=== PATIENT | male | born 1965 | race Hispanic/Latino ===

== ENCOUNTER 2019-12-08 07:00 | Day surgery (SDC) | payer BC ==
[2019-12-01 11:01] LABS: BASOPHILS % (AUTO) 0.6 % (0.0-5.0); EOSINOPHILS % (AUTO) 0.2 % (0.0-8.0); HEMATOCRIT 43.3 % (42-54); LYMPHOCYTES % (AUTO) 20.1 % (21.0-51.0); MEAN CORPUSCULAR HEMOGLOBIN 29.9 pg (27.0-33.0); MEAN CORPUSCULAR HGB CONC 33.5 g/dL (32.0-36.0); MEAN CORPUSCULAR VOLUME 89.3 fL (79-99); MONOCYTES % (AUTO) 6.6 % (3.0-13.0); NEUTROPHILS % (AUTO) 72.3 % (40.0-77.0); PLATELET COUNT (AUTO) 271 K/uL (130-400); RED BLOOD CELL COUNT(AUTO) 4.85 MIL/uL (4.50-6.20)
[2019-12-01 11:12] LABS: CREATININE 1.1 mg/dL (0.5-1.5); POTASSIUM 3.8 mmol/L (3.5-5.1)
[2019-12-07 11:00] VITALS: BP 146/86
[2019-12-08] VITALS (16 sets, daily range): BP systolic 121–140; BP diastolic 74–88
[~2019-12-08] VITALS: Ht 179.1 cm; Wt 71.8 kg
[2019-12-08] MEDS ORDERED: LACTATED RINGERS 1000ML 1,000 ML IV ONE (07:38)
[2019-12-08] MEDS: CEFAZOLIN SODIUM 1 GM VIAL ONE ×2 (08:21→10:00)
[2019-12-08] MEDS ORDERED: IBUP-2077 PO (08:23)
[2019-12-08] MEDS ORDERED: GLUC-172 PO (08:23)
[2019-12-08] MEDS ORDERED: ESOM40CA54 PO (08:23)
[2019-12-08] MEDS ORDERED: LIDOCAINE PF 2% 5ML ABBOJECT ONE (09:48)
[2019-12-08] MEDS ORDERED: ONDANSETRON HCL 4 MG/2 ML VIAL ONE (09:48)
[2019-12-08] MEDS ORDERED: DEXAMETHASONE SOD PHOSPHATE 10MG/ML 1ML VIAL ONE (09:49)
[2019-12-08] MEDS ORDERED: PROPOFOL 10 MG/ML 20ML VIAL IV ONE (09:49)
[2019-12-08] MEDS ORDERED: FENTANYL CITRATE PF 50 MCG/1 ML 2ML VIAL ONE (09:49)
[2019-12-08] MEDS ORDERED: MIDAZOLAM HCL 1 MG/ML 2ML VIAL ONE (09:49)
[2019-12-08] MEDS ORDERED: SUCCINYLCHOLINE CHLORIDE 20 MG/ML 10 ML VIAL ONE (09:52)
[2019-12-08] MEDS ORDERED: KETOROLAC TROMETHAMINE 30MG/ML ONE (10:18)
[2019-12-08] MEDS ORDERED: CEPH500B PO (10:58)
[2019-12-08] MEDS ORDERED: ACET1TAB25 PO (10:58)
[2019-12-08] MEDS ORDERED: MEPERIDINE-PF 25 MG/ML SYG ONE ×2 (11:08→11:18)
== END 2019-12-08 12:42 | disposition home or self-care (01) ==
LOC: DAH 07:00
PROVIDERS: ATTEND Orthopaedic Surgery
DX: S83.251A Bucket-handle tear of lateral meniscus, current injury, right knee, initial encounter (principal); Z20.828 Contact with and (suspected) exposure to other viral communicable diseases; M94.261 Chondromalacia, right knee; M24.561 Contracture, right knee; G89.29 Other chronic pain; Z85.72 Personal history of non-Hodgkin lymphomas; Z98.890 Other specified postprocedural states; Z79.899 Other long term (current) drug therapy; X58.XXXA Exposure to other specified factors, initial encounter
CPT/HCPCS: 29881; 36415; 80048; 85025; A4213; A4215; A4221; A4222; A4223; A4649 ×2; A4663; A4930; A6223; C9803; J0330; J0690; J1100; J1885; J2001; J2175 ×2; J2250; J2405; J2704; J3010; J7120; U0003